=== PATIENT | male | born 1970 ===

== ENCOUNTER → 2020-06-08 06:49 | Outpatient (CLI) | payer OTHER | END | disposition home or self-care (01) | LOC: PPH VACUNA 06:49 | DX: Z23 Encounter for immunization (principal) ==

== ENCOUNTER 2020-06-29 08:10 | Outpatient (CLI) | payer OTHER | END 2020-06-29 08:11 | disposition home or self-care (01) | LOC: PPH VACUNA 08:10 | DX: Z23 Encounter for immunization (principal) ==